=== PATIENT | male | born 1950 | race Caucasian/White ===

== ENCOUNTER → 2017-09-02 | Outpatient (CLI) | payer OTHER ==
[2017-09-02] MEDS: GADOBUTROL 7.5 MMOL/7.5 ML VIAL IV (11:17)
== END | disposition home or self-care (01) ==
LOC: MRI 09:27
DX: C79.31 Secondary malignant neoplasm of brain (principal); Z85.118 Personal history of other malignant neoplasm of bronchus and lung
CPT/HCPCS: 70553; A9585